=== PATIENT | male | born 2000 | race African-American/Black ===

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

== ENCOUNTER 2020-06-06 11:52 | Emergency (ER) | payer OTHER ==
[~2020-06-06] VITALS: Ht 177.8 cm; Wt 93.6 kg
[2020-06-06] MEDS ORDERED: AZITHROMYCIN 250MG TABLET PO ONE (13:00)
[2020-06-06] MEDS ORDERED: cefTRIAXone SOD 250MG VIAL (J0696 PER 250MG) IM ONE (13:00)
[2020-06-06] MEDS ORDERED: LIDOCAINE 1% SDV 5ML VIAL DILUENT ONE (13:00)
[2020-06-06] MEDS ORDERED: DOXY100C37 PO (13:02)
[2020-06-06 13:37] VITALS: BP 159/79
[2020-06-06 14:56] LABS: CHLAMYDIA DNA AMPLIFICATION NEGATIVE (NEGATIVE); GC DNA AMPLIFICATION NEGATIVE (NEGATIVE)
== END 2020-06-06 13:39 | disposition home or self-care (01) ==
LOC: M ED 11:52
DX: N48.89 Other specified disorders of penis (principal); M25.579 Pain in unspecified ankle and joints of unspecified foot; F17.200 Nicotine dependence, unspecified, uncomplicated
CPT/HCPCS: 87661; 96372; 99283; J0696